=== PATIENT | male | born 1960 | race Caucasian/White ===

== ENCOUNTER 2021-07-09 13:46 | Emergency (ER) | payer MEDICARE, MEDICAID, SELFPAY ==
[2021-07-09 14:07] VITALS: BP 148/63; PULSE 91; RESP 18; TEMP 36.3; O2SAT 97; BMI 44.7
[2021-07-09 16:37] LABS: Basophils Percent Auto 0.3 % (0-2); Hemoglobin 9.4 g/dl (14.0-18.0); Imm Gran Abs Auto 0.04 X10*3/uL (0.00-0.03); Imm Gran Pct Auto 0.4 % (0.0-0.4); MANUAL DIFF FLAG SCAN; Neutrophils Percent Auto 80.2 % (45-73); PLT CLUMP 1; SCAN SMEAR FLAG 1
[2021-07-09 16:39] LABS: Eosinophils Absolute Auto 0.2 X10*3/uL (0.0-0.4); Eosinophils Percent Auto 2.4 % (0-4); Hematocrit 29.5 % (42.0-52.0); Lymphocytes Absolute Auto 0.8 X10*3/uL (1.2-4.9); Lymphocytes Percent Auto 8.1 % (20-40); Mean Corpuscular HGB Conc 31.9 g/dl (31.0-36.0); Mean Corpuscular Hemoglobin 28.1 pg (27.0-33.0); Mean Corpuscular Volume 88.3 fL (80.0-98.0); Mean Platelet Volume 11.2 fL (9.4-12.4); Monocytes Absolute Auto 0.8 X10*3/uL (0.1-1.2); Monocytes Percent Auto 8.6 % (2-11); Neutrophils Absolute Auto 7.6 x10*3/uL (2.0-8.3); Red Blood Count 3.34 X10*6/uL (4.60-5.80); Red Cell Distribution Width 14.9 % (11.0-16.0)
[2021-07-09 16:43] LABS: INTERNATIONAL NORM RATIO 1.1 (0.9-1.1)
[2021-07-09 16:55] LABS: Platelet Count 173 X10*3/uL (160-400); White Blood Count 9.5 X10*3/uL (4.8-10.8)
[2021-07-09 16:56] LABS: SLIDE REVIEW VERIFIED
[2021-07-09 16:59] LABS: Alanine Aminotransferase 14 U/L (0-40); Albumin Level 3.4 g/dL (3.5-5.0); Alkaline Phosphatase 96 U/L (39-117); Anion Gap 15 (12-20); Aspartate Amino Transferase 20 U/L (5-37); Bilirubin Direct 0.2 mg/dL (0.0-0.5); Bilirubin Total 0.4 mg/dL (0.0-1.0); Blood Urea Nitrogen 44 mg/dL (9-16); Calcium 8.6 mg/dL (8.4-10.2); Carbon Dioxide 32 mmol/L (22-29); Chloride 97 mmol/L (96-108); Creatinine Clr Calc Pharmacy 78.2; Estimated Glomerular Filt Rate 47; Glucose Random 201 mg/dL (60-115); Potassium 4.3 mmol/L (3.3-5.1); Sodium 140 mmol/L (135-145); Total Protein 7.7 g/dL (6.5-8.0)
[2021-07-09 19:55] VITALS: BP 116/76; PULSE 83; RESP 22; O2SAT 96
[2021-07-09 20:38] LABS: Lactic Acid 1.1 mmol/L (0.5-2.0)
--- NOTE | 2021-07-09 21:45 | ED_ITS ---
HPI - Wound/Laceration General Chief Complaint: Wound/Laceration Stated Complaint: r foot infection Time Seen by Provider: 07/09/21 21:24 Source: patient Mode of arrival: ambulatory Limitations: no limitations History of Present Illness HPI narrative: 61-year-old male who presents emergency department for evaluation of possible wound infection of the right medial malleolus. The patient states that he has a history of non healing ulcer to his left leg. The patient lives in [place] but recently moved back to this area 2 weeks prior to live with his mother. He states that 3 weeks prior his wound care doctor and main started him on 2 antibiotics which she cannot recall the name of however he believes that 1 antibiotic was clindamycin and the 2nd antibiotic was most likely a cephalosporin based on his attempt to pronounce the name. He states that he finished the antibiotic 3 or 4 days prior and his mother looked at the wound and she was concerned that was infected. He states that there is a small area of erythema around the wound. He states that he has been dressing the wound with a Betadine dressing. He states that he always has redness to his lower extremities which is unchanged. He denied fever, chills, fatigue, nausea, vomiting, loss of appetite. The patient states he is going to be in this area for several weeks and he is going to be staying with his mother and he needs further wound care. The patient had his right 5th toe amputated approximately 2-3 months prior secondary to osteomyelitis, he states that this wound is healed well. He states that he has another ulcer on his left foot which is doing well. Related Data Previous Rx's Medication Instructions Recorded bacitracin 500 unit/gram topical 1 appl TOPICAL DAILY 14 Days #28 g 07/09/21 ointment doxycycline hyclate 100 mg tablet 100 mg PO Q12H 10 Days #20 tab 07/09/21 Allergies Allergy/AdvReac Type Severity Reaction Status Date / Time No Known Allergies Allergy Unverified 04/10/20 14:53 [No Known Allergies*] Review of Systems Review of Systems: Yes all other systems are reviewed and are negative [facility] Past Medical History [facility] Narrative: Past medical history: Diabetes mellitus, hyperlipidemia. Past surgical history: Amputation of the right 5th toe approximately 3 3 months prior in [place]. Social history: Patient moved from [place] to check a P approximately 2 weeks prior and he is living with his mother. He denies tobacco, alcohol and drug use. Social History Social History Advance Directives: No Physical Exam Vital Signs: Vital Signs: Last Vital Signs Temp 97.3 F 07/09/21 14:07 Pulse 83 07/09/21 19:55 Resp 22 H 07/09/21 19:55 BP 116/76 07/09/21 19:55 Pulse Ox 96 07/09/21 19:55 BMI result Body Mass Index 44.7 Const: Other: Awake, alert, male, very pleasant and cooperative, he does not appear to be in distress, he answers all questions appropriately. He is morbidly obese. HENMT: Head: Yes normal to inspection, Yes normocephalic and Yes atraumatic Ears: external ears normal General nose exam: Normal external nose present Face and sinus: Yes normal facial exam Mouth: Normal oral and palatal mucosa present Throat: Yes posterior oropharynx normal Eyes: General: appearance normal, both eyes and all related structures Pupils: Equal, round and reactive pupils present Neck: Neck: Yes normal visual inspection, Yes no lymphadenopathy, Yes trachea midline and Yes supple Chest: Chest palpation & inspection: normal inspection of the chest and normal palpation of entire chest wall Resp: Effort & Inspection: normal respiratory effort and able to speak in complete sentences Auscultation: clear to auscultation bilaterally Cardio: Rate: regular rate Rhythm: regular rhythm Heart sounds: S1 normal heart sound present, S2 normal heart sound present and no murmurs GI: Inspection: Yes normal to inspection Palpation (GI): Soft to palpation, nontender and no guarding Auscultation: normal bowel sounds : General: Yes no CVA tenderness Back/Spine/Pelvis: Back: no CVA tenderness Skin: General skin exam: no rashes or lesions noted Neuro: Cranial nerves: Yes CN's II-XII intact bilaterally and Yes Equal, round and reactive pupils present Cognition (Neuro): normal cognition Motor exam (neuro): 5/5 motor strength present throughout Extrem: Other: Right lower extremity revealed chronic skin changes to the pretibial area and to the ventral aspect of the foot, he triangular shaped full skin thickness ulcer to the medial malleolus measuring approximately 6 cm in his greatest length, there is a small ring of erythema around the skin ulcer, there is granulation tissue noted in the ulcer with a small area of cicatrix. There is no increased warmth to the erythema. Patient has a 5th toe amputation. Psych: Appearance: grossly normal Speech and movement: Normal speech and movement present Affect: normal affect Attitude: cooperative Thought process: Normal thought process present Thought content: Normal thought content present Course Course Course Narrative: 61-year-old male who presents emergency department for evaluation of possible infection of his right foot. Patient does have a chronic nonhealing ulcer to the right medial malleolus area and has been in wound care and main but has now moved to this area 2 weeks prior. He was on a 3 week course of 2 antibiotic regimen (cephalosporin and clindamycin) which he just recently completed. His physical examination today reveals a chronic healing ulcer to the left medial malleolus with slight small area of erythema surrounding the ulcer. The patient will be started on doxycycline 100 mg twice a day for 7 days. His wound was dressed with bacitracin and a gauze dressing. He was advised to apply bacitracin once a day with a gauze dressing. He will be referred to our [facility]ound Care [facility] for further treatment. 2155: Laboratory evaluation: CBC revealed anemia with an H&H of 9.4 and 29.5. WBC was normal. Patient's bicarb was elevated 32. BUN creatinine are elevated 44 and 1.53, glucose was elevated at 201. MDM - Wound/Laceration Lab Data Result diagrams: 07/09/21 16:26 07/09/21 16:26 Labs: Lab Results 07/09/21 07/09/21 07/09/21 Range/Units 16:26 16:26 16:26 WBC 9.5 (4.8-10.8) X10*3/uL RBC 3.34 L (4.60-5.80) X10*6/uL Hgb 9.4 L (14.0-18.0) g/dl Hct 29.5 L (42.0-52.0) % MCV 88.3 (80.0-98.0) fL MCH 28.1 (27.0-33.0) pg MCHC 31.9 (31.0-36.0) g/dl RDW 14.9 (11.0-16.0) % Plt Count 173 (160-400) X10*3/uL MPV 11.2 (9.4-12.4) fL Immature Gran % (Auto) 0.4 (0.0-0.4) % Neut % (Auto) 80.2 H (45-73) % Lymph % (Auto) 8.1 L (20-40) % Mellette % (Auto) 8.6 (2-11) % Eos % (Auto) 2.4 (0-4) % Baso % (Auto) 0.3 (0-2) % Lymph # (Auto) 0.8 L (1.2-4.9) X10*3/uL Mellette # (Auto) 0.8 (0.1-1.2) X10*3/uL Eos # (Auto) 0.2 (0.0-0.4) X10*3/uL Baso # (Auto) 0.0 (0.0-0.2) X10*3/uL Abs Immat Gran (auto) 0.04 H (0.00-0.03) X10*3/uL Absolute Neuts (auto) 7.6 (2.0-8.3) x10*3/uL Absolute Nucleated RBC 0.000 (0.0-0.012) X10*3/uL Nucleated RBC % (auto) 0.0 (0.0-0.2) /100WBC Smear Tech's Comments VERIFIED PT 13.0 (9.9-13.0) SEC INR 1.1 (0.9-1.1) APTT 33.0 (24.1-38.0) SEC Sodium 140 (135-145) mmol/L Potassium 4.3 (3.3-5.1) mmol/L Chloride 97 (96-108) mmol/L Carbon Dioxide 32 H (22-29) mmol/L Anion Gap 15 (12-20) BUN 44 H (9-16) mg/dL Creatinine 1.53 H (0.5-1.4) mg/dL Estim Creat Clear Calc 78.2 Estimated GFR 47 Random Glucose 201 H (60-115) mg/dL Lactic Acid (0.5-2.0) mmol/L Calcium 8.6 (8.4-10.2) mg/dL Total Bilirubin 0.4 (0.0-1.0) mg/dL Direct Bilirubin 0.2 (0.0-0.5) mg/dL AST 20 (5-37) U/L ALT 14 (0-40) U/L Alkaline Phosphatase 96 (39-117) U/L Total Protein 7.7 (6.5-8.0) g/dL Albumin 3.4 L (3.5-5.0) g/dL /16/ Range/Units 20:21 WBC (4.8-10.8) X10*3/uL RBC (4.60-5.80) X10*6/uL Hgb (14.0-18.0) g/dl Hct (42.0-52.0) % MCV (80.0-98.0) fL MCH (27.0-33.0) pg MCHC (31.0-36.0) g/dl RDW (11.0-16.0) % Plt Count (160-400) X10*3/uL MPV (9.4-12.4) fL Immature Gran % (Auto) (0.0-0.4) % Neut % (Auto) (45-73) % Lymph % (Auto) (20-40) % Mellette % (Auto) (2-11) % Eos % (Auto) (0-4) % Baso % (Auto) (0-2) % Lymph # (Auto) (1.2-4.9) X10*3/uL Mellette # (Auto) (0.1-1.2) X10*3/uL Eos # (Auto) (0.0-0.4) X10*3/uL Baso # (Auto) (0.0-0.2) X10*3/uL Abs Immat Gran (auto) (0.00-0.03) X10*3/uL Absolute Neuts (auto) (2.0-8.3) x10*3/uL Absolute Nucleated RBC (0.0-0.012) X10*3/uL Nucleated RBC % (auto) (0.0-0.2) /100WBC Smear Tech's Comments PT (9.9-13.0) SEC INR (0.9-1.1) APTT (24.1-38.0) SEC Sodium (135-145) mmol/L Potassium (3.3-5.1) mmol/L Chloride (96-108) mmol/L Carbon Dioxide (22-29) mmol/L Anion Gap (12-20) BUN (9-16) mg/dL Creatinine (0.5-1.4) mg/dL Estim Creat Clear Calc Estimated GFR Random Glucose (60-115) mg/dL Lactic Acid 1.1 (0.5-2.0) mmol/L Calcium (8.4-10.2) mg/dL Total Bilirubin (0.0-1.0) mg/dL Direct Bilirubin (0.0-0.5) mg/dL AST (5-37) U/L ALT (0-40) U/L Alkaline Phosphatase (39-117) U/L Total Protein (6.5-8.0) g/dL Albumin (3.5-5.0) g/dL Discharge Plan Discharge Clinical Impression: Cellulitis, Skin ulcer due to diabetes mellitus Patient Disposition: Home, Self-Care Instructions: Cellulitis (ED) Additional Instructions: At this time, the skin ulcer appears to be healing and there is only a very slight area of redness around the ulcer suggesting that you have a mild skin infection. Your blood work was consistent with your diabetes and kidney disease otherwise was normal with a normal white blood cell count which is reassuring. I am treating the infection with doxycycline 100 mg twice a day for 7 days. It is important that you call our wound care clinic tomorrow to try to make a follow-up appointment within 1-2 weeks to get treatment of this nonhealing ulcer to your foot. Apply bacitracin once a day and keep the wound covered with a gauze dressing. Stop using Betadine since this can cause damage to your skin. Follow-up with our wound clinic within 1-2 weeks. Please return to the emergency department if your symptoms get worse or if you develop any symptoms that are concerning to you. Prescriptions: New bacitracin 500 unit/gram ointment 1 appl topical DAILY 14 Days Qty: 28 RF: 0 doxycycline hyclate 100 mg tablet 100 mg PO Q12H 10 Days Qty: 20 RF: 0 Referrals: Wound Care [facility] [Outside] - 1 week
[2021-07-09 22:14] VITALS: BP 149/64; PULSE 71; RESP 20; TEMP 36.7; O2SAT 97
[2021-07-09] MEDS: Bacitracin Oint 14 GM TUBE 1 APPL TOPICAL (22:24)
== END 2021-07-09 22:44 | disposition home or self-care (01) ==
PROVIDERS: Emergency Provider Emergency Medicine Emergency Medical Services
DX: E11.621 Type 2 diabetes mellitus with foot ulcer (principal); L03.115 Cellulitis of right lower limb
CPT/HCPCS: 36415; 80048; 80076; 83605; 85025; 85610; 85730; 87040; 99283; 99284